=== PATIENT | female | born 1940 | race Caucasian/White ===

== ENCOUNTER 2019-02-10 11:43 | Inpatient (IN) | payer MEDICARE, MEDICAID ==
[~2019-02-10] VITALS: Ht 160 cm; Wt 125.2 kg
[~2019-02-10 11:43] MED LIST: ALLERGY RELIEF10 MG; AMARYL4 MG PO; AUGMENTIN 875875 MG PO; B COMPLEX WITH1 EACH; CIPROFLOXACIN500 M3; CLARITIN10 MG PO; COLACE100 MG PO; FISH OIL; FUROSEMIDE 40 M40 M1; IBUPROFEN 600600 M1 PO; KEFLEX500 MG PO; KETOCONAZOLE60 GM TOP; LISINOPRIL20 MG; METFORMIN HCL500 MG PO; NORCO 5-325 TA1 EAC1 PO; NORCO 5-325 TA1 EACH PO; POTASSIUM20 PO; SERTRALINE HCL100 MG PO; SIMVASTATIN20 MG; SYNTHROID125 MC1 PO; TRIAMCINOLONE A80 G2 TOP; ZESTORETIC 20-1 EAC3 PO
[2019-02-10 11:56] VITALS: BP 175/70
[2019-02-10] MEDS ORDERED: JANUVIA100 MG PO (11:59)
[2019-02-10 12:41] LABS: ABSOLUTE BASOPHILS 0.1 thou/uL (0.0-0.2); ABSOLUTE EOSINOPHILS 0.2 thou/uL (0.0-0.7); ABSOLUTE LYMPHOCYTES 1.5 thou/uL (0.8-5.3); ABSOLUTE MONOCYTES 0.8 thou/uL (0.0-1.2); ABSOLUTE NEUTROPHILS 5.2 thou/uL (1.6-8.1); BASOPHILS 0.7 %; EOSINOPHILS 3.2 %; HEMATOCRIT 35.7 % (37.0-47.0); HEMOGLOBIN 12.5 gm/dL (12.0-15.0); LYMPHOCYTES 18.7 %; MCH 29.8 pg (26.0-34.0); MCHC 34.9 g/dL (28.0-37.0); MCV 85.5 fL (80.0-100.0); MONOCYTES 10.5 %; MPV 8.2 fl. (7.2-11.1); NUCLEATED RBCS 0 /100WBC; PLATELET COUNT* 181 thou/uL (150-400); POLYS 66.9 %; RBC 4.18 mil/uL (4.20-5.00); RDW-CV 12.8 % (10.5-14.5); WBC 7.8 thou/uL (4.0-11.0)
[2019-02-10 12:48] LABS: ANION GAP 6 mmol/L (7-16); BUN 11 mg/dL (7-18); CALCIUM 8.7 mg/dL (8.5-10.1); CHLORIDE 93 mmol/L (98-107); CO2 28 mmol/L (21-32); CREATININE 0.6 mg/dL (0.6-1.3); GLUCOSE 197 mg/dL (70-99); SODIUM 127 mmol/L (136-145)
[2019-02-10 12:52] LABS: APTT 29.1 Seconds (25.0-31.3); PROTIME 10.5 Seconds (9.20-11.50)
[2019-02-10 13:00] LABS: ALKALINE PHOSPHATASE 60 U/L (46-116); NT-PRO BRAIN NAT PEPTIDE 158 pg/mL (<300); SGOT 16 U/L (15-37); SGPT 26 U/L (30-65); TOTAL BILIRUBIN 0.4 mg/dL (<0.1-1.0); TOTAL PROTEIN 6.6 g/dL (6.4-8.2); TROPONIN-I LEVEL <0.06 ng/mL (<0.06)
--- NOTE | 2019-02-10 14:28 | NUR ---
PT BACK FROM RADIOLOGY VIA STRETCHER. TAKEN TO BATHROOM VIA STRETCHER.
--- NOTE | 2019-02-10 15:52 | NUR ---
CALL LIGHT ON, PT STATES SHE IS HOT, WANTED THE SIDE RAIL UP, HER HOB LOWERED AND OXYGEN TUBING RESITUATED. PT BROUGHT FAN, SIDE RAIL WAS RAISED, AND HOB LOWERED. OXYGEN TUBING REPOSITIONED ON EARS. PT THEN STATED SHE NEEDED TO GO TO BATHROOM. PT UNHOOK FROM MONITORS AND PT AMBULATED TO BATHROOM, STEADY SLOW GAIT.
--- NOTE | 2019-02-10 17:41 | EKG ---
[place] [address] ELECTROCARDIOGRAM REPORT Name: NEAL REYES Room: [place] [address] ADM IN .R.#: [id number] Admission: 02/10/19 Attend Phys: Lisa Gilliland Discharge: Date of : 42 Report #: [id number] THIS REPORT FOR: //name// [facility] ED Test Date: 2019-02-10 Test Time: 11:49:41 Pat Name: NEAL REYES Department: Room: [facility] Gender: F Almond Paste Mixer: : 1940 Requested By: Debbie Villanueva Order Number: [id number] MD: Lon Lackey Measurements Intervals [place] Rate: 76 P: 45 HI: 176 QRS: -44 QRSD: 86 T: 59 QT: 399 QTc: 449 Interpretive Statements Sinus rhythm Left anterior fascicular block Compared to ECG 08/19/2016 22:11:41 No significant changes Electronically Signed On 02-10-2019 17:41:32 CDT by Lon Lackey [email or web address] <ELECTRONICALLY SIGNED> By: Lon Lackey MD, [facility] 02/10/19 1741 1149 [id number] Lon Lackey MD, [facility] /EPI
[2019-02-10 18:32] VITALS: BP 165/79
[2019-02-10 18:52] VITALS: BP 165/79
--- NOTE | 2019-02-10 20:00 | NUR ---
RECEIVED REPORT AND ASSUMED CARE OF PT. ADMISSION ASSESSMENT AND HX COMPLETED, SEE INTERVENTIONS. PT'S RT CHEEK EDEMATOUS, WAS AT DENTIST TO GET TOOTH EXTRACTED BEFORE COMING TO HOSPITAL. GAIT SLOW BUT STEADY AROUND ROOM. VERY MATICULIOUS ABOUT HER SURROUNDINGS. TELEMETRY ON SHOWING SR. WILL CONT TO MONITOR AND ASSIST NEEDED.
[2019-02-10] MEDS ORDERED: FUROSEMIDE 20 M20 M1 PO (20:46)
[2019-02-10] MEDS ORDERED: HYDROCHLOROTH12.5 M1 PO (20:47)
[2019-02-10] MEDS ORDERED: KETOCONAZOLE15 GM TOP (20:50)
[2019-02-11 00:06] VITALS: BP 162/71
[2019-02-11 04:00] VITALS: BP 121/67
--- NOTE | 2019-02-11 05:48 | NUR ---
AWAKE UNTIL APPROX 0200, AFTER THIS REMAINED UP IN RECLINER AND SLEPT. PT STATED SHE WAS EXHAUSTED BUT COULDN'T SLEEP BEFORE THIS. RT CHEEK REMAINS EDEMATOUS, ICE PACK TO SITE. UP TO BR HUGO, STATES SHE FEELS LIKE SHE JUST CAN'T EMPTY HER BLADDER. PVR COMPLETED WITH RESIDUAL OF [employer]. TELEMETRY CONT TO SHOW SR. HS GOALS OF REST AND SAFETY ACHIEVED. HOURLY ROUNDING OBSERVED. PT HAS BEEN NPO SINCE CA FOR POSS TEST THIS AM.
[2019-02-11 08:03] VITALS: BP 161/71
--- NOTE | 2019-02-11 11:49 | NUR ---
PT REPORTED SHE HAS A HEADACHE AND TOOTH PAIN. DR EHLMS NOTIFIED. HYDROCODONE ORDERED AND GIVEN.
[2019-02-11 12:24] VITALS: BP 125/59
[2019-02-11 12:54] LABS: CALCIUM 8.8 mg/dL (8.5-10.1); CREATININE 0.6 mg/dL (0.6-1.3); POTASSIUM 3.6 mmol/L (3.5-5.1)
--- NOTE | 2019-02-11 13:02 | 2DMMODE ---
[place] [address] 2 D/M-MODE ECHOCARDIOGRAM Name: NEAL REYES Room: [address] IN [facility]#: [id number] Admission: 02/10/19 Attend Phys: Robin Hamilton Discharge: Date of : 42 Date of Service: 02/11/19 1302 Report #: [id number] THIS REPORT FOR: //name// APPROVED REPORT Study performed: 02/11/2019 10:43:48 EXAM: Comprehensive 2D, Doppler, and color-flow Echocardiogram Patient Location: In-Patient Room #: [facility] Status: routine BSA: 2.22 HR: 75 bpm BP: 161/71 mmHg Rhythm: NSR Other Information Study Quality: Technically Difficult Technically limited study due to patient could not tolerate due to rash pain.. Indications Dyspnea 2D Dimensions IVSd: 11.73 (7-11mm) LVOT Diam: 19.33 (18-24mm) LVDd: 44.98 mm PWd: 10.71 (7-11mm) Ascending Ao: 34.75 (22-36mm) LVDs: 26.83 (25-40mm) Aortic Root: 32.14 mm Mitral Valve MV Decel. Time: 328.11 ms MV PHT: 95.15 ms MVA (PHT): 2.31 cm2 Left Ventricle The left ventricle is normal size. There is normal LV segmental wall motion. There is normal left ventricular wall thickness. Left ventricular systolic function is normal. The left ventricular ejection fraction is within the normal range. The left ventricular diastolic function is normal. Right Ventricle The right ventricle is normal size. [place] [address] 2 D/M-MODE ECHOCARDIOGRAM Name: PRISCILLAVAHIDNEAL Room: [address] IN [facility]#: [id number] Admission: 02/10/19 Attend Phys: Robin Hamilton Discharge: Date of : 42 Date of Service: 02/11/19 1302 Report #: [id number] function is normal. Atria The left atrium size is normal. The right atrium size is normal. Aortic Valve The aortic valve is not well visualized. No aortic regurgitation is present. There is no aortic valvular stenosis. Mitral Valve There is mitral annular calcification. Mitral valve is not well visualized. There is no mitral valve regurgitation noted. No evidence of mitral valve stenosis. Tricuspid Valve Tricuspid valve is not well visualized. Unable to assess PA pressure. Trace tricuspid regurgitation. Pulmonic Valve Pulmonic valve is not well visualized. There is no pulmonic valvular regurgitation. Great Vessels The aortic root is normal in size. IVC is normal in size and collapses >50% with inspiration. Pericardium There is no pericardial effusion. <Conclusion> Left ventricular systolic function is normal. The left ventricular ejection fraction is within the normal range. <ELECTRONICALLY SIGNED> By: Luis Moyer MD, [facility] 02/11/19 1302 01 01 Luis Moyer MD, FAC /INF
--- NOTE | 2019-02-11 15:14 | NUR ---
Cardiac rehab nurse in with Pt, CM will attempt to see later
[2019-02-11 16:22] VITALS: BP 136/47
--- NOTE | 2019-02-11 16:30 | NUR ---
PT O2 SAT 89% RA. O2 2L NC PLACED ON PT. O2 SAT 97%.
--- NOTE | 2019-02-11 17:27 | NUR ---
PT CARE ASSUMED AFTER REPORT. ASSESSMENT COMPLETE. SR ON MONITOR. O2 2L NC. DIET ADVANCED TO CONSISTANT CARB 1800 SAADIA WITH 2GM NA+. PRN PAIN MEDICATION GIVEN PER PT REQUEST. ECHO COMPLETED TODAY. PT UP TO BSC WITH SLOW, STEADY GAIT. PROGRESSING TOWARDS GOALS.
[2019-02-11 20:10] VITALS: BP 143/65
[2019-02-12] VITALS: BP 130/51
[2019-02-12 04:00] VITALS: BP 161/67
--- NOTE | 2019-02-12 04:52 | NUR ---
ASSUMED CARE OF PT AT 1900. PT IS ALERT AND ORIENTED. VSS. PERRLA. PT REPORTS SOME TOOTH PAIN. PT IS RECIEVING HYDROCODONE FOR PAIN. PT IS UP AD VIKI. PLUS 2 EDEMA IN LOWER EXTREMITIES. PT IS IN SINUS RYTHM ON THE TELEMETRY. PT IS RESTING COMFORTABLY IN BED. RESPIRATIONS ARE EVEN AND NONLABORED. WILL CONTINUE TO MONITOR PT.
[2019-02-12 08:00] VITALS: BP 166/65
--- NOTE | 2019-02-12 08:00 | NUR ---
ASSUMED PT CARE AT 0700, PT SITTING UP IN CHAIR, A&O X4, UP AD VIKI, VSS, TANK PUMPER PANELBOARD TRACING SINUS RHYTHM, LS CTA, REMAINS ON 1.5LPM O2 VIA NC D/T PT STATING SHE "FEELS THAT SHE BREATHES BETTER WITH OXYGEN ON", PT O2 SAT 93% RA. CHEST XRAY ORDERED FOR THIS AM. DENIES ANY PAIN AT THIS TIME, WILL CONT POC.
[2019-02-12 11:14] LABS: ABSOLUTE BASOPHILS 0.1 thou/uL (0.0-0.2); ABSOLUTE EOSINOPHILS 0.3 thou/uL (0.0-0.7); ABSOLUTE LYMPHOCYTES 1.5 thou/uL (0.8-5.3); ABSOLUTE MONOCYTES 0.7 thou/uL (0.0-1.2); ABSOLUTE NEUTROPHILS 5.1 thou/uL (1.6-8.1); BASOPHILS 0.7 %; EOSINOPHILS 4.4 %; HEMATOCRIT 41.6 % (37.0-47.0); HEMOGLOBIN 13.9 gm/dL (12.0-15.0); LYMPHOCYTES 19.1 %; MCH 29.3 pg (26.0-34.0); MCHC 33.5 g/dL (28.0-37.0); MCV 87.6 fL (80.0-100.0); MONOCYTES 9.7 %; MPV 8.6 fl. (7.2-11.1); NUCLEATED RBCS 0 /100WBC; PLATELET COUNT* 219 thou/uL (150-400); POLYS 66.1 %; RBC 4.75 mil/uL (4.20-5.00); RDW-CV 13.4 % (10.5-14.5); WBC 7.7 thou/uL (4.0-11.0)
[2019-02-12 11:34] LABS: ALBUMIN 3.4 g/dL (3.4-5.0); CALCIUM 8.5 mg/dL (8.5-10.1); CREATININE 0.6 mg/dL (0.6-1.3); MAGNESIUM 1.9 mg/dL (1.8-2.4); POTASSIUM 4.3 mmol/L (3.5-5.1); TOTAL BILIRUBIN 0.6 mg/dL (<0.1-1.0); TOTAL PROTEIN 7.6 g/dL (6.4-8.2)
[2019-02-12 11:54] VITALS: BP 160/56
--- NOTE | 2019-02-12 12:27 | NUR ---
Nutrition: pt admit with SOB, heart failure. Received consult for cardiac education. Noted cardiac rehabilitation consultant has seen pt. Ns states will provide written diet materials prior to D/C as no physical RD coverage at [facility] this weekend.
--- NOTE | 2019-02-12 15:31 | NUR ---
Pt is A&O. Resides at home alone at [facility]. Independent with ADLs. Pt has a ZUL[employer] caregiver that comes 2 days/week for 4 hours/day, that assists with cooking and cleaning. No home o2. Supportive friends and [employer] members that provide transportation. Hx of HH. No hx of SNF. Goal is home at al, Pt thinks that she may need home o2.
[2019-02-12 16:31] VITALS: BP 154/61
--- NOTE | 2019-02-12 18:59 | NUR ---
PT REMAINS UP AD VIKI, REPEAT CHEST XRAY THIS SHIFT SHOWS PULMONARY VENOUS CONGESTIONA AND EDEMA, PT REMAINS ON O2 AT 1.5-2PLM, LASIX DISCONTINUED, PULMONOLOGY CONSULTED. HOURLY ROUNDING COMPLETED.
[2019-02-12 19:30] VITALS: BP 158/65
[2019-02-13] VITALS: BP 166/59
--- NOTE | 2019-02-13 03:31 | NUR ---
ASSUMED CARE OF PT AT 1900. PT IS ALERT AND ORIENTED. VSS. PERRLA. NO COMPLAINTS OF PAIN. UP WITH STAND BY ASSIST. PT IS IN SINUS RYTHM ON THE TELEMETRY. PT IS RESTING COMFORTABLY IN BED. RESPIRATIONS ARE EVEN AND NONLABORED. WILL CONTINUE TO MONITOR PT.
[2019-02-13 04:00] VITALS: BP 161/66
--- NOTE | 2019-02-13 05:39 | NUR ---
PT REFUSING SYNTHROID. SHE STATES THAT SEVERAL DOCTORS HAVE TOLD HER GENERICS ARE NOT THE SAME BRAND NAME SYNTHROID AND NOT TO TAKE THEM.
[2019-02-13 08:00] VITALS: BP 158/66
[2019-02-13 12:01] VITALS: BP 171/65
[2019-02-13 17:20] VITALS: BP 154/64
[2019-02-13 19:30] VITALS: BP 174/82
[2019-02-14] VITALS: BP 148/56
--- NOTE | 2019-02-14 03:56 | NUR ---
ASSUMED CARE OF PT AT 1900. PT IS ALERT AND ORIENTED. VSS. PERRLA. NO COMPLAINTS OF PAIN. PT IS SPO2 100% ON 1 LITER. PT IS IN SINUS RYTHM ON THE TELEMETRY. PT IS RESTING COMFORTABLY IN BED. RESPIRATIONS ARE EVEN AND NONLABORED. WILL CONTINUE TO MONITOR PT.
[2019-02-14 04:00] VITALS: BP 159/58
[2019-02-14 07:10] VITALS: BP 177/85
--- NOTE | 2019-02-14 10:37 | NUR ---
INITAL ASSESSMENT COMPLETED CHARTED. VSS. PT O2 SAT 96% ON 1 LPM, PT REFUSES TO TRY AND WEAN OFF OF O2. NO SOA NOTED. PT IRRITABLE AND ARGUMENTATIVE WELL. ENCOURAGED PT TO AMBULATE, PT DOES NOT WANT TO AT THIS TIME. TRACING NSR ON MONITOR. HOURLY ROUNDING IN PLACE. MEDS GIVEN PER EMAR. CLWR.
--- NOTE | 2019-02-14 10:49 | CON ---
[address] [address] CONSULTATION Name: NEAL REYES Room: [address] IN M.R.#: [id number] Admission: 02/10/19 Attend Phys: Lisa Gilliland Discharge: Date of : 42 Report #: [id number] THIS REPORT FOR: //name// CC: Alverto Hamilton DATE OF SERVICE: 02/13/2019 TYPE OF REPORT: New patient evaluation. REASON FOR EVALUATION: Shortness of breath and hypoxemia. HISTORY OF PRESENT ILLNESS: The patient is a pleasant 78-year-old woman who presented complaining of shortness of breath and chest pressure. She was at the dentist's office and had some shortness of breath and chest pressure, was admitted for further care. Her history dates back to 6 months ago. She had bronchitis. She has urinary tract infection. Since then has been feeling fatigued, shortness of breath with exertion, has lower extremity edema and swelling and has been sleeping in the recliner. She denies any significant cough overall. Though, she states she has intermittent wheezing and she has nasal allergies. She has been started on bronchodilator treatment; however, without change in her shortness of breath; however, a treatment makes her cough. No history of fever on admission. PAST MEDICAL HISTORY: Significant for diabetes and hypertension as well as hypothyroidism and depression. PAST SURGICAL HISTORY: Bilateral knee replacement and hysterectomy. HOME MEDICATIONS: Noted and reviewed. CURRENT MEDICATIONS: Noted. ALLERGIES: Reviewed. SOCIAL HISTORY: She is a lifelong nonsmoker. No alcohol abuse. FAMILY HISTORY: Noncontributory. REVIEW OF SYSTEMS: A 12-point review of systems: She has arthritis, lower extremity and joint pain. Has a history of nasal allergies, runny nose, chest pressure; however, denies exertional chest pain and this was on admission and shortness of breath for 10 days prior to admission. Has lower extremity swelling for 6 months. Otherwise, 12-point review of systems as above. PHYSICAL EXAMINATION: [place] [address] CONSULTATION Name: NEAL REYES Room: [address]#: [id number] Admission: 02/10/19 Attend Phys: Lisa Gilliland Discharge: Date of : 42 Report #: [id number] GENERAL: The patient is pleasant, not in distress. She is afebrile, pulse is 83, respiratory rate 18 and blood pressure is 171/65 and her blood pressure has been increased since admission and on admission was 175/70. HEAD AND NECK: Neck is supple. Oral mucosa clear. Eyes anicteric. CHEST: She has inspiratory crackles. CARDIOVASCULAR: Regular rhythm. ABDOMEN: Soft and nontender. EXTREMITIES: +2 edema. PSYCHIATRIC: Alert and oriented. NEUROLOGICAL: No focal deficit. LABORATORY AND OTHER DATABASE: I reviewed her chest x-ray and chest CT, which was done on the , shows bilateral patchy ground glass infiltrates suspicious for pulmonary edema. Borderline hilar enlarged lymph node, likely reactive, which can be related to edema as well. Chest x-ray on the showed unchanged pulmonary vascular congestion. White blood cell count 7.7. ASSESSMENT AND PLAN: Shortness of breath and hypoxemia. The patient has bilateral ground glass densities, suspect pulmonary edema. Recommend diuresis. Recommend Cardiology consult. She has an echocardiogram, which showed normal left ventricular function; however, the patient has uncontrolled hypertension, likely chronic, which exacerbated her pulmonary edema, suspect heart failure with exacerbation with ejection fraction now decompensated. Differential diagnoses include atypical pneumonia; however, less likely. We will treat empirically with Levaquin. Her B-natriuretic peptide though was low but it could underestimate severity with obesity. We will continue to follow up intermittently. Continue to wean oxygen. We will need followup chest CT to confirm resolution in 2 months. As above, differential diagnosis include pneumonia and Levaquin will be added. Currently, the patient on bronchodilator with treatment. We will need also pulmonary function test as outpatient with previous history of wheezing to evaluate for bronchial asthma. The patient is currently on Levaquin. <ELECTRONICALLY SIGNED> By: Kathryn Hunter MD 02/14/19 1049 1254 [id number] Hunter MD /nt
[2019-02-14 11:55] VITALS: BP 145/61
[2019-02-14 14:30] VITALS: BP 148/62
[2019-02-14 20:00] VITALS: BP 133/59
[2019-02-15] VITALS: BP 146/52
[2019-02-15 04:00] VITALS: BP 139/64
[2019-02-15 05:11] LABS: HEMATOCRIT 39.3 % (37.0-47.0); HEMOGLOBIN 13.4 gm/dL (12.0-15.0); MCH 29.8 pg (26.0-34.0); MCHC 34.1 g/dL (28.0-37.0); MCV 87.4 fL (80.0-100.0); MPV 7.6 fl. (7.2-11.1); RBC 4.49 mil/uL (4.20-5.00); RDW-CV 13.1 % (10.5-14.5)
[2019-02-15 05:40] LABS: ALBUMIN 3.3 g/dL (3.4-5.0); CALCIUM 9.2 mg/dL (8.5-10.1); CREATININE 0.6 mg/dL (0.6-1.3); MAGNESIUM 1.8 mg/dL (1.8-2.4); POTASSIUM 3.5 mmol/L (3.5-5.1); TOTAL BILIRUBIN 0.5 mg/dL (<0.1-1.0); TOTAL PROTEIN 7.2 g/dL (6.4-8.2)
--- NOTE | 2019-02-15 06:00 | NUR ---
ASSUMED PT CARE @ 1930. A+O X4. PT TRACING SR ON MONITOR. SLEPT THROUGH NIGHT WITHOUT DIFFICULTY. CALL LIGHT IN REACH. HOURLY ROUNDING FOR SAFETY.
[2019-02-15 07:10] VITALS: BP 148/64
--- NOTE | 2019-02-15 10:17 | NUR ---
INITIAL ASSESSMENT COMPLETED CHARTED. VSS. TRACING SR ON MONITOR. PT JANIE PAIN, SOA, CP, N/V/D AT THIS TIME. PT DOES REPORT FEELING A BIT ANXIOUS ABOUT UPCOMING STRESS TEST. PT JANIE ANY FURTHER NEEDS AT THIS TIME. HOURLY ROUNDING IN [place] FOR PT SAFETY. CLWR.
[2019-02-15 11:53] VITALS: BP 173/76
--- NOTE | 2019-02-15 14:39 | CARDNUC ---
[place] [address] CARDIAC NUCLEAR IMAGING REPORT Name: NEAL REYES Room: [address] IN .#: [id number] Admission: 02/10/19 Attend Phys: Robin Hamilton Discharge: Date of : 42 Date of Service: 02/15/19 1439 Report #: [id number] THIS REPORT FOR: //name// APPROVED REPORT Imaging Protocol: Stress Tc-99m/Rest Tc-99m 2 days Study performed: 02/15/2019 09:42:00 Indication: Chest pain NM Tech:VICKIE Singleton BMI: 0 Medical History Medical History: Diabetes Medications: Lisinopril Pharmacologic Stress Pharmacologic stress test was performed by injecting Regadenoson 0.4 mg IV push over 10-15 seconds immediately followed by the intravenous injection of 30.0 mCi of Tc-99m Sestamibi. Time of stress injection: 1110 Date: 02/15/2019 Administration Route: IV Administration Site: Right Arm Gated Stress SPECT was performed 40 minutes after stress injection. The images were gated to evaluate regional wall motion and calculate left ventricular ejection fraction. Stress only was performed in the Supine position. Stress Test Details Stress Test: Pharmacologic stress testing performed using 0.4 mg of regadenoson per 5 mL given IV over 10 seconds. Reason for pharmacologic stress test: physical limitation. HR Max Heart Rate (APMHR): 143 bpm Resting HR: 71 bpm Target HR (85% APMHR): 121 bpm Max HR Achieved: 91 bpm % of APMHR: 63 HR response to stress: Normal HR response to stress BP Resting BP: 148/80 mmHg Max BP: 188/53 mmHg Recovery BP: 156/49 [place] [address] CARDIAC NUCLEAR IMAGING REPORT Name: NEAL REYES Room: [address]#: [id number] Admission: 02/10/19 Attend Phys: Robin Hamilton Discharge: Date of : 42 Date of Service: 02/15/19 1439 Report #: [id number] Resting ECG: nsr Stress ECG: nsr ST Change: none Maximum ST Deviation: none mm Arrhythmia: none Recovery ECG: nsr Recovery ST Change: none Recovery ST Deviation: n mm Clinical Reason for Termination: Completed protocol Stress Symptoms: none Stress ECG Conclusion negative ecg Study Quality Study: Good Artifact: Mild Breast artifact Study Data Post stress, the left ventricular ejection was 75%.. Perfusion Stress only SPECT images are normal in supine and prone positions, without any perfusion defects. Wall Motion normal all segments Nuclear Conclusion ECG Findings: negative for ischemia Clinical Findings: negative for ischemia Nuclear Findings: negative for ischemia Exercise Capacity: not assessed Left Ventricular Function: normal Risk Study: low Negative stress perfusion nuclear stress [place] [address] CARDIAC NUCLEAR IMAGING REPORT Name: NEAL REYES Room: [address] IN .R.#: [id number] Admission: 02/10/19 Attend Phys: Robin Hamilton Discharge: Date of : 42 Date of Service: 02/15/19 143 Report #: [id number] <Conclusion> negative ecg <ELECTRONICALLY SIGNED> By: Bakari Islas MD, FACC 02/15/19 1439 38 38 Bakari Islas MD, FACC /INF
[2019-02-15 16:00] VITALS: BP 147/67
[2019-02-15 20:00] VITALS: BP 125/50
[2019-02-16] VITALS: BP 175/70
--- NOTE | 2019-02-16 02:06 | NUR ---
ASSUMED PT CARE @ 194. PT A+0. NO SOA WITNESSED OR OBSERVED. PT REPORTED DENTAL PAIN AND REFUSED NORCO. PT STATED "IT DOESNT'T HELP. I'D RATHER JUST HAVE IBUPROFEN." PT ALSO REPORTS CONSTIPATION. WILL PASS ON IN REPORT. CALL LIGHT IN REACH. HOURLY ROUNDING FOR SAFETY.
[2019-02-16 04:10] VITALS: BP 120/69
--- NOTE | 2019-02-16 06:30 | NUR ---
NOTIFIED DR PATEL OF PT'S ELECTROLYLTES LABS THIS AM. SODIUM RECHECK ORDERED FOR 0800. PT A+O X 4 WITH NORMAL BALANCE AND COORDINATION. PT STATES "THIS IS THE BEST DALLIN FELT IN DAYS."
[2019-02-16 08:21] VITALS: BP 148/64
--- NOTE | 2019-02-16 11:22 | NUR ---
Nutrition: Wt stable from admit. Intake 75% this am. Meds and labs reviewed. Provided pt with handout and explaination of 2 gm Na diet. Reviewed recommendations for ANATOLIY and avoid most processed foods, etc. Pt appeared to have a good understanding but also has many opinions about what she should eat. Pt stated she is on food stamps and can't always buy low Na foods like canned goods; recommendations offered. Concerning meals pt is unhappy with our heart healthy margarin, and our low-sugar jelly that contins artifical sweeteners. Pt also unhappy that don't have stevia or Truvia artificial sweeteners. Pt concerned about constipation, has been eating 6 prunes per meal (>2 CHO choices); doesn't want meds for constipation. Pt unhappy that she was not able to take Synthroid for 5 days and feels her body is not responding to all these medical interventions well. Encouraged pt to talk with dietary staff daily about her meal preferences. constipation, has been eating 6 prunes with each meal
[2019-02-16 11:59] VITALS: BP 155/52
[2019-02-16 16:11] VITALS: BP 152/62
--- NOTE | 2019-02-16 16:39 | NUR ---
02/16 Days: x1 dose of iv lasix. daily steriods added. k+ and mag+ given with lasix. BLE doppler completed. laxatives added to aid in relieving patients constipation. Continues on 1L o2, mostly for patient comfort
[2019-02-16 20:00] VITALS: BP 142/65
[2019-02-17] VITALS: BP 134/58
--- NOTE | 2019-02-17 03:49 | NUR ---
ASSUMED PT CARE @ 1930. PT A+OX4. VERY ANXIOUS ABOUT MEDS. UPSET ABOUT BLOOD SUGAR AND HAVING TO TAKE INSULIN IN THE HOSPITAL. PT ANXIOUS ABOUT BLOOD SUGAR LEVLES WHILE IN THE HOSPITAL. THIS RN EDUCATED PT FOR THE 3RD CONSECUTIVE NIGHT IN A ROW WHY PT IS CURRENTLY TAKING INSULIN AND HOW HER BLOOD SUGAR LEVELS ARE EXPECTED PT IS NOT TAKING HER HOME JANUVIA AND METFORMIN. PT REFUSED TO START LOVENOX STATING "I WANT TO TALK TO THE DR BEFORE I START ANY NEW MEDICATION." PT ALSO C/O DENTAL PAIN AND DECLINED TO TAKE HER NORCO. CALL LIGHT IN REACH. HOURLY ROUNDING FOR SAFETY.
[2019-02-17 04:00] VITALS: BP 131/68
[2019-02-17 05:33] LABS: HEMATOCRIT 40.3 % (37.0-47.0); HEMOGLOBIN 13.7 gm/dL (12.0-15.0); MCH 29.2 pg (26.0-34.0); MCHC 33.9 g/dL (28.0-37.0); MCV 86.2 fL (80.0-100.0); RBC 4.68 mil/uL (4.20-5.00); WBC 7.1 thou/uL (4.0-11.0)
[2019-02-17 05:48] LABS: CALCIUM 8.9 mg/dL (8.5-10.1); CREATININE 0.6 mg/dL (0.6-1.3)
[2019-02-17 08:00] VITALS: BP 140/65
--- NOTE | 2019-02-17 10:40 | NUR ---
CM spoke with Pt regarding disposition, Pt wants to return home at dc and wants to [facility]. CM to reach out to [facility] and determine if they can accept Pt at dc. Following
[2019-02-17 11:48] VITALS: BP 140/64
[2019-02-17 17:09] VITALS: BP 125/60
--- NOTE | 2019-02-17 19:40 | NUR ---
PT ALERT AND ORIENTED X4.VSS. RESTED IN THE RECLINER THE WHOLE DAY, STATES IT IS MORE COMFORTABLE THAN THE BED. PT HAD A HUGE BM, HARD FORMED IN CONSISTENCY. PT PROGRESSING TOWARD GOALS. WALKED DOWN THE MILLER WITH THE HELP OF PT. DENIES PAIN OR SOA.
[2019-02-17 20:00] VITALS: BP 136/63
[2019-02-18] VITALS: BP 130/57
[2019-02-18 04:00] VITALS: BP 121/64
--- NOTE | 2019-02-18 04:40 | NUR ---
ASSUMED PT CARE AT APPROX 1930. PT IS AWAKE AND ORIENTED X4, ON THE RECLINER. VSS ON 2L/NC. UTILITY TRACTOR OPERATOR IN PLACE TRACING SR. PT DENIES PAIN. PT C/O HER FACE BEING HOT. BP 139/62. T:98.4. APPLIED COLD WASHCLOTHS ON PT'S FACE AND SHE SAID IT HELPED. HOURLY ROUNDING DONE. CALL LIGHT WITHIN REACH.
[2019-02-18 08:00] VITALS: BP 145/65
[2019-02-18 11:38] VITALS: BP 140/59
--- NOTE | 2019-02-18 11:45 | NUR ---
0730 ASSUMED CARE OF PATIENT. PLEASE SEE DOCUMENTED ASSESSMENT, PATIENT HAS SLEPT IN RECLINER ALL NIGHT.
--- NOTE | 2019-02-18 16:09 | NUR ---
INTERDRY PLACED TO BOTH GROINS AND UNDERR RIGHT BREAST DUE TO REDNESS
[2019-02-18 16:19] VITALS: BP 141/61
--- NOTE | 2019-02-18 18:21 | NUR ---
PATIENT MAKING SOME PROGRESS TOWARDS GOALS.ON OXYGEN AT 1LPM. HAS BEEN IN RECLINER ALL DAY EXCEPT FOR BRP AND WALKING IN MILLER. SHORT OF BREATH WITH EXERTION. BLOOD GLUCOSE VARIES. PT IS FRUSTRATED AT TRYING TO OBTAIN DIFFERENT PRIMARY CARE PHYSICIAN. HAVE NOT SEEN VISITORS BUT PT HAS BEEN ON TELEPHONE. VSS
[2019-02-18 20:00] VITALS: BP 145/71
[2019-02-19] VITALS: BP 140/64
[2019-02-19 04:00] VITALS: BP 142/72
--- NOTE | 2019-02-19 04:48 | NUR ---
ASSUMED PT CARE AT APPROX 1930. PT IS AWAKE AND ORIENTED X4. PT PREFERS TO SLEEP ON THE RECLINER. VSS ON 1L/NC. BRANCH OFFICE MANAGER TRACING SR. PT DENIES PAIN/DISCOMFORT. REASSESSMENT DONE AND CHARTED. CALL LIGHT WITHIN REACH. HOURLY ROUNDING DONE FOR PT SAFETY.
[2019-02-19 05:45] LABS: ALBUMIN 3.6 g/dL (3.4-5.0); CALCIUM 8.8 mg/dL (8.5-10.1); CREATININE 0.6 mg/dL (0.6-1.3); MAGNESIUM 1.9 mg/dL (1.8-2.4); POTASSIUM 3.2 mmol/L (3.5-5.1); TOTAL BILIRUBIN 0.7 mg/dL (<0.1-1.0); TOTAL PROTEIN 7.6 g/dL (6.4-8.2)
[2019-02-19 05:49] LABS: HEMATOCRIT 39.8 % (37.0-47.0); HEMOGLOBIN 13.6 gm/dL (12.0-15.0); MCH 29.4 pg (26.0-34.0); MCHC 34.1 g/dL (28.0-37.0); MCV 86.1 fL (80.0-100.0); MPV 8.4 fl. (7.2-11.1); RBC 4.62 mil/uL (4.20-5.00); RDW-CV 13.1 % (10.5-14.5); WBC 7.5 thou/uL (4.0-11.0)
[2019-02-19 07:05] VITALS: BP 144/59
--- NOTE | 2019-02-19 10:00 | NUR ---
INITAL ASSESSMENT COMPLETED CHARTED. VSS. SR-SB ON MONITOR. PT DENIES PAIN. PT DENIES ANY FURTHER NEEDS AT THIS TIME. HOURLY ROUNDING AND FALL PRECAUTIONS IN PLACE FOR PT SAFETY. CLWR.
[2019-02-19 11:54] VITALS: BP 135/57
[2019-02-19 16:45] VITALS: BP 137/64
[2019-02-19 20:00] VITALS: BP 144/73
[2019-02-20] VITALS: BP 149/69
--- NOTE | 2019-02-20 03:44 | NUR ---
ASSUMED PT CARE AT APPROX 1930. PT IS AWAKE AND ORIENTED X4. VSS ON ROOM AIR, NO DESATURATIONS NOTED. PT TRACING SR ON TELE. REASSESSMENT DONE AND CHARTED. PT DENIES PAIN/DISCOMFORT, PT DENIES ANY NEEDS OF THIS TIME. CALL LIGHT WITHIN REACH. HOURLY ROUNDING DONE FOR PT SAFETY.
[2019-02-20 04:00] VITALS: BP 129/63
[2019-02-20 07:10] VITALS: BP 145/65
--- NOTE | 2019-02-20 10:00 | NUR ---
INITIAL ASSESSMENT COMPLETED CHARTED. VSS. SR ON MONITOR. PT IS CURRENTLY ON RA WITH ADEQUATE O2 SATS. PT UP ADLIB WITH STEADY GAIT. HOURLY ROUNDING IN PLACE FOR PT SAFETY. CLWR.
[2019-02-20 11:30] VITALS: BP 147/62
[2019-02-20 16:00] VITALS: BP 137/67
[2019-02-20 20:00] VITALS: BP 137/71
[2019-02-21] VITALS: BP 142/75
[2019-02-21 04:00] VITALS: BP 149/64
--- NOTE | 2019-02-21 04:14 | NUR ---
ASSUMED PT CARE AT AROUND 1930. PT IS AWAKE AND ORIENTED X4. VSS ON ROOM AIR. NO DESATURATIONS NOTED. DIRECTOR OF NUCLEAR MEDICINE IN PLACE TRACING SR. PT DENIES PAIN. PT's GROIN AREA AND UNDER THE BREAST AREA IS STILL RED BUT LOOKS BETTER,AREA CLEANED AND NEW INTERDRY REAPPLIED BETWEEN SKIN FOLDS. CALL LIGHT WITHIN REACH. HOURLY ROUNDING DONE FOR PT SAFETY,
[2019-02-21 04:39] LABS: HEMATOCRIT 41.5 % (37.0-47.0); HEMOGLOBIN 13.9 gm/dL (12.0-15.0); MCHC 33.5 g/dL (28.0-37.0); MCV 86.6 fL (80.0-100.0); MPV 8.3 fl. (7.2-11.1); RBC 4.8 mil/uL (4.20-5.00); RDW-CV 12.9 % (10.5-14.5); WBC 7.7 thou/uL (4.0-11.0)
[2019-02-21 04:53] LABS: CALCIUM 8.8 mg/dL (8.5-10.1); CREATININE 0.6 mg/dL (0.6-1.3); MAGNESIUM 1.8 mg/dL (1.8-2.4); POTASSIUM 3.2 mmol/L (3.5-5.1)
[2019-02-21 07:05] VITALS: BP 144/63
[2019-02-21 11:37] VITALS: BP 156/69
[2019-02-21 15:52] VITALS: BP 136/64
[2019-02-21 19:50] VITALS: BP 142/62
[2019-02-22] VITALS: BP 144/65
[2019-02-22 04:00] VITALS: BP 144/67
--- NOTE | 2019-02-22 05:19 | NUR ---
PATIENT PROGRESSING TOWARDS GOALS: PATIENT DENIES PAIN AND DISCOMFORT. VSS ON ROOM AIR. INTERDRY REMAINS IN PANUS REGION. PATIENT CONCERNED WITH ELEVATED BLOOD SUGAR. INSULIN ADMINISTERED PER ORDERS AND EDUCATED PATIENT ON EFFECTS OF STEROIDS. PATIENT VERBALIZES UNDERSTANDING. PATIENT PENDING POSSIBLE DISCHARGE TODAY. CALL LIGHT WITHIN REACH
[2019-02-22 05:30] LABS: HEMATOCRIT 40.4 % (37.0-47.0); HEMOGLOBIN 13.9 gm/dL (12.0-15.0); MCH 29.6 pg (26.0-34.0); MCHC 34.5 g/dL (28.0-37.0); MPV 8.5 fl. (7.2-11.1); RBC 4.69 mil/uL (4.20-5.00); WBC 7.5 thou/uL (4.0-11.0)
[2019-02-22 05:42] LABS: ALBUMIN 3.6 g/dL (3.4-5.0); CALCIUM 9.1 mg/dL (8.5-10.1); CREATININE 0.7 mg/dL (0.6-1.3); MAGNESIUM 1.9 mg/dL (1.8-2.4); POTASSIUM 3.5 mmol/L (3.5-5.1); TOTAL BILIRUBIN 0.8 mg/dL (<0.1-1.0); TOTAL PROTEIN 7.5 g/dL (6.4-8.2)
[2019-02-22 07:15] VITALS: BP 139/71
--- NOTE | 2019-02-22 10:25 | NUR ---
CM discussed disposition with Pt, Pt waivering between and SNF, Pt to contact dtr to get her opinion. CM informed Pt that she is getting close to dc and we need to have a plan in place, CM to f/u later today.
[2019-02-22 11:36] VITALS: BP 124/56
[2019-02-22 15:39] VITALS: BP 133/65
--- NOTE | 2019-02-22 18:47 | NUR ---
ASSESSMENT COMPLETED CHARTED. VSS. TRACING SR ON MONITOR. HOURLY ROUNDING IN PLACE FOR PT SAFETY.CLWR.
[2019-02-22 19:45] VITALS: BP 152/53
[2019-02-23] VITALS: BP 154/59
[2019-02-23 03:44] VITALS: BP 149/66
[2019-02-23 05:39] LABS: HEMATOCRIT 39.2 % (37.0-47.0); HEMOGLOBIN 13.6 gm/dL (12.0-15.0); MCH 29.6 pg (26.0-34.0); MCHC 34.6 g/dL (28.0-37.0); MCV 85.7 fL (80.0-100.0); MPV 8.2 fl. (7.2-11.1); RBC 4.58 mil/uL (4.20-5.00); RDW-CV 13.2 % (10.5-14.5); WBC 8.2 thou/uL (4.0-11.0)
[2019-02-23 05:58] LABS: ALBUMIN 3.4 g/dL (3.4-5.0); CALCIUM 8.9 mg/dL (8.5-10.1); CREATININE 0.6 mg/dL (0.6-1.3); MAGNESIUM 1.8 mg/dL (1.8-2.4); POTASSIUM 3.1 mmol/L (3.5-5.1); TOTAL BILIRUBIN 0.8 mg/dL (<0.1-1.0); TOTAL PROTEIN 7.1 g/dL (6.4-8.2)
--- NOTE | 2019-02-23 06:57 | NUR ---
RECEIVED REPORT AND ASSUMED CARE AT 1900. VSS. CARDIAC MONTORING IN PLACE. PT DENIES COMPLAINTS OF PAIN. ASSESSMENT COMPLETED CHARTED. PT UP AD VIKI IN ROOM, ON RA. BED LOCKED IN LOWEST POSITION, CALL LIGHT WITHIN REACH. HOURLY ROUNDING COMPLETED AND ALL NEEDS MET.
[2019-02-23 08:00] VITALS: BP 146/61
--- NOTE | 2019-02-23 11:29 | NUR ---
[facility] can accept Pt for skilled, awaiting dc orders.
--- NOTE | 2019-02-23 11:44 | NUR ---
Pt discharging to [facility] skilled today. Faxed dc orders. Chart copied. Nurse report number provided, [phone]. Facility to pickling tank operator at 2pm. Updated Pt's family.
[2019-02-23 11:47] VITALS: BP 123/54
--- NOTE | 2019-02-23 16:35 | NUR ---
DISCHARGE NOTE - IV REMOVED. CHART COPIED AND SENT WITH PT. REPORT CALLED TO LEONARD SIDDIQI AT [facility]. NO QUESTIONS. ALL BELONGINGS SENT WITH PT AND SHARON OROZCO.
--- NOTE | 2019-02-28 10:35 | D ---
[address] [address] DISCHARGE SUMMARY Name: NEAL REYES Room: [address]#: [id number] Admission: 02/10/19 Attend Phys: Lisa Gilliland Discharge: 02/23/19 Date of : 42 Report #: [id number] THIS REPORT FOR: //name// CC: Alverto Palma DO Robin Hamilton DATE OF SERVICE: 02/23/2019 DISCHARGE DIAGNOSES: 1. Acute diastolic congestive heart failure exacerbation. 2. Pneumonia, moderately increasing. 3. Possible gram-negative pneumonia. 5. Hypertension. 6. Chronic venous stasis. 7. Obesity. 9. Hyponatremia. 10. Diabetes. 11. Hypertension. 12. Acute hypoxic respiratory failure, resolved. 13. COPD in exacerbation. 14. Generalized weakness. 15. Bronchospasm. 16. GERD. HOSPITAL COURSE: The patient is a 78-year-old female who presented to us here complaining of some shortness of breath. She was noted to be in acute diastolic congestive heart failure. She was diuresed. She was doing better in that aspect. However, she developed bronchospasm and was wheezy. Pulmonary was consulted. A chest x-ray done, which showed no focal consolidation, but improved aeration in her last chest x-ray. She did have a chest x-ray done on admission, which showed no infiltrates. Also, the patient had some CT chest done, which showed no PE, but scattered ground glass infiltrate. She has treated for them with antibiotics. She has been on Levaquin and will finish off Levaquin at prison facility. She lives by herself. She will need to transition to prison facility. She has been placed on steroids and she is doing well. She does have some wheezing. DISCHARGE PHYSICAL EXAMINATION: VITAL SIGNS: Temperature is 36.6, heart rate 86, respirations 16, blood pressure 103/54, 96% on room air. GENERAL: The patient is alert. She is oriented x 3, not in acute respiratory distress. HEENT: Normocephalic, atraumatic. Nares patent. Clear pharynx. NECK: Supple. No lymphadenopathy. CARDIOVASCULAR: Normal rate, regular [place] [id number] DISCHARGE SUMMARY Name: NEAL REYES Room: [address]#: [id number] Admission: 02/10/19 Attend Phys: Lisa Gilliland Discharge: 02/23/19 Date of : 42 Report #: [id number] RESPIRATORY: Clear to auscultation bilaterally. No wheeze, no crackles. She does have some wheezing and no crackles noted. GASTROINTESTINAL: Abdomen is soft, nontender, nondistended. Good bowel sounds. No organomegaly. GENITOURINARY: Deferred. MUSCULOSKELETAL: Good strength. NEUROLOGIC: Grossly normal. PSYCHIATRIC: The patient is calm and good. DISCHARGE INSTRUCTIONS: The patient will be discharged to [facility] ([place]) today for continued rehab and rehab potential fair. PT and OT activity as tolerated with assistance of full weightbearing. DIET: 2 gram sodium diet, fluid restriction, 1500 mL per day, ADA 800 kcal diet, fingerstick blood sugar a.c. and bedtime. Follow up with PCP in 3-5 days. DISCHARGE MEDICATIONS: Amaryl 4 mg daily. She is on chlorthalidone 25 mg daily, Claritin 10 mg daily, DuoNeb inhaled every 4 hours, furosemide 20 mg daily, Glucophage 500 mg p.o. b.i.d., Januvia 100 mg daily, ketoconazole 15 grams b.i.d. p.r.n., Levaquin 500 mg daily x 4 more days, MiraLax 17 g daily, Prinivil 10 mg daily, Pulmicort 0.5 inhaled daily, sertraline 200 mg at bedtime, Singulair 10 mg at bedtime, Synthroid 125 daily, Zoloft 50 mg daily, Prednisone taper 20 mg x 3 days, then 10 mg p.o. daily x 3 days, then discontinue. NovoLog insulin sliding scale, give 1 unit for every 50 units over 150 upto 400 blood sugar. Please call PCP if blood sugar is more than 400 and we will also have a BNP in 3 days. Results through PCP. I spent 38 minutes taking care of this patient today. <ELECTRONICALLY SIGNED> By: Natalie Zamorano MD 02/28/19 1035 [id number] [id number] Zamorano MD /nt
== END 2019-02-23 16:35 | DRG 177 ==
LOC: M.ERS 11:43 → M.TBA-ER 13:18 → M.2W 13:18
PROVIDERS: Family Medicine; Nurse Practitioner Family; ADMIT Internal Medicine
DX: J69.0 Pneumonitis due to inhalation of food and vomit (principal); J96.01 Acute respiratory failure with hypoxia; I50.33 Acute on chronic diastolic (congestive) heart failure; E87.1 Hypo-osmolality and hyponatremia; Z68.42 Body mass index [BMI] 45.0-49.9, adult; I11.0 Hypertensive heart disease with heart failure; J15.9 Unspecified bacterial pneumonia; K21.9 Gastro-esophageal reflux disease without esophagitis; J15.6 Pneumonia due to other Gram-negative bacteria; J84.9 Interstitial pulmonary disease, unspecified; E66.01 Morbid (severe) obesity due to excess calories; K59.00 Constipation, unspecified; E11.9 Type 2 diabetes mellitus without complications; I87.8 Other specified disorders of veins; F32.9 Major depressive disorder, single episode, unspecified; E03.9 Hypothyroidism, unspecified; Z96.653 Presence of artificial knee joint, bilateral; Z88.2 Allergy status to sulfonamides; Z90.710 Acquired absence of both cervix and uterus; Z91.040 Latex allergy status

== ENCOUNTER 2019-03-03 14:00 | Emergency (ER) | payer MEDICARE, MEDICAID ==
[~2019-03-03] VITALS: Ht 162.6 cm; Wt 113.4 kg
[~2019-03-03 14:00] MED LIST changes: +FUROSEMIDE 20 M20 M1 PO; +HYDROCHLOROTH12.5 M1 PO; +JANUVIA100 MG PO; +KETOCONAZOLE15 GM TOP
[2019-03-03] MEDS ORDERED: ACCUNEB SO1.25 MG/1 INH (14:14)
[2019-03-03] MEDS ORDERED: ACIDOPHILUS1 EAC4 PO (14:15)
[2019-03-03] MEDS ORDERED: NYSTATIN100000 UNI SW&SWALLOW (14:15)
[2019-03-03] MEDS ORDERED: METFORMIN HCL500 MG PO (14:15)
[2019-03-03] MEDS ORDERED: PULMICORT0.25 MG/2 (14:16)
[2019-03-03] MEDS ORDERED: ATROVENT HFA14 GM INH (14:16)
[2019-03-03] MEDS ORDERED: AMARYL4 MG PO (14:16)
[2019-03-03] MEDS ORDERED: CLARITIN10 MG PO (14:16)
[2019-03-03] MEDS ORDERED: TUBERSOL1 ML/1 VIA INTRADERM (14:16)
[2019-03-03] MEDS ORDERED: JANUVIA100 MG PO (14:16)
[2019-03-03] MEDS ORDERED: MIRALAX17 GM PO (14:17)
[2019-03-03] MEDS ORDERED: NOVOLOG100 UNIT/1 SUBQ (14:17)
[2019-03-03 16:08] VITALS: BP 133/58
== END 2019-03-03 16:10 | disposition home or self-care (01) ==
LOC: M.ERS 14:00
DX: T78.3XXA Angioneurotic edema, initial encounter (principal); B37.0 Candidal stomatitis; E11.9 Type 2 diabetes mellitus without complications; F32.9 Major depressive disorder, single episode, unspecified; E03.9 Hypothyroidism, unspecified; Z90.710 Acquired absence of both cervix and uterus; Z91.040 Latex allergy status; Z88.1 Allergy status to other antibiotic agents; Z88.2 Allergy status to sulfonamides; Z96.653 Presence of artificial knee joint, bilateral; Z79.4 Long term (current) use of insulin

== ENCOUNTER 2020-06-29 00:22 | Emergency (ER) | payer MEDICARE, MEDICAID ==
[~2020-06-29] VITALS: Ht 160 cm; Wt 113.4 kg
[~2020-06-29 00:22] MED LIST changes: +ACCUNEB SO1.25 MG/1 INH; +ACIDOPHILUS1 EAC4 PO; +ATROVENT HFA14 GM INH; +MIRALAX17 GM PO; +NOVOLOG100 UNIT/1 SUBQ; +NYSTATIN100000 UNI SW&SWALLOW; +PULMICORT0.25 MG/2; +TUBERSOL1 ML/1 VIA INTRADERM
[2020-06-29] MEDS ORDERED: LOSARTAN PO (00:34)
[2020-06-29] MEDS ORDERED: SYNTHROID125 MC1 (00:35)
[2020-06-29] MEDS ORDERED: MONTELUKAST PO (00:35)
[2020-06-29] MEDS ORDERED: KLOR-CON 10 ER10 MEQ (00:36)
[2020-06-29 01:08] LABS: ABSOLUTE EOSINOPHILS 0.1 thou/uL (0.0-0.7); ABSOLUTE LYMPHOCYTES 0.8 thou/uL (0.8-5.3); ABSOLUTE MONOCYTES 0.5 thou/uL (0.0-1.2); ABSOLUTE NEUTROPHILS 4.5 thou/uL (1.6-8.1); BASOPHILS 0.5 %; EOSINOPHILS 1.7 %; HEMATOCRIT 42.4 % (37.0-47.0); HEMOGLOBIN 14.6 gm/dL (12.0-15.0); LYMPHOCYTES 13.1 %; MCHC 34.5 g/dL (28.0-37.0); MONOCYTES 7.9 %; MPV 8.5 fl. (7.2-11.1); NUCLEATED RBCS 0 /100WBC; PLATELET COUNT* 153 thou/uL (150-400); POLYS 76.8 %; RBC 4.88 mil/uL (4.20-5.00); RDW-CV 13.9 % (10.5-14.5); WBC 5.9 thou/uL (4.0-11.0)
[2020-06-29 01:14] LABS: CALCIUM 8.7 mg/dL (8.5-10.1); CREATININE 0.8 mg/dL (0.6-1.3)
[2020-06-29 01:15] LABS: URINE BILIRUBIN NEGATIVE (Negative); URINE BLOOD NEGATIVE (Negative); URINE CLARITY CLEAR; URINE COLOR YELLOW; URINE GLUCOSE-RANDOM NEGATIVE (Negative); URINE KETONES NEGATIVE (Negative); URINE LEUKOCYTES-REFLEX 2+ (Negative); URINE NITRITE-REFLEX NEGATIVE (Negative); URINE PROTEIN NEGATIVE (Negative); URINE SPECIFIC GRAVITY 1.015 (1.005-1.030); URINE UROBILINOGEN 0.2 E.U./dl (0.2-1.0)
[2020-06-29 01:24] LABS: PROTIME 10.7 Seconds (9.20-11.50)
[2020-06-29 01:25] LABS: ALBUMIN 3.9 g/dL (3.4-5.0); MAGNESIUM 1.6 mg/dL (1.8-2.4); TOTAL BILIRUBIN 0.6 mg/dL (<0.1-1.0); TOTAL PROTEIN 7.6 g/dL (6.4-8.2)
[2020-06-29 01:39] LABS: BACTERIA-REFLEX >30 Many /HPF (None Seen); COARSE GRANULAR CASTS 0-3 Few /LPF (None Seen); CRYSTALS None Seen /LPF (None Seen); FINE GRANULAR CASTS 0-3 Few /LPF (None Seen); MUCUS 4-6 Moderate strn/LPF (None Seen); SQUAMOUS 0-3 Few /LPF (0-3); URINE RBC 3-10 Few /HPF (0-2); WBC CLUMPS Few (None Seen)
[2020-06-29] MEDS ORDERED: VIBRAMYCIN 100100 MG PO (03:28)
[2020-06-29 04:15] VITALS: BP 130/70
--- NOTE | 2020-06-29 10:21 | EKG ---
[place] [address] ELECTROCARDIOGRAM REPORT Name: NEAL REYES Room: [facility]#: [id number] Admission: 06/29/20 Attend Phys: Discharge: 06/29/20 Date of : 42 Date of Service: 06/29/20 0124 Report #: [id number] THIS REPORT FOR: //name// [facility] ED Test Date: 2020-06-29 Test Time: 01:24:04 Pat Name: NEAL WELLSEDWAR Department: Room: Gender: F Business Records Manager: [place] : 1940 Requested By: Vidhya Barney Order Number: [id number] MD: Luis Moyer Measurements Intervals [place] Rate: 76 P: 30 MO: 177 QRS: -45 QRSD: 90 T: 50 QT: 387 QTc: 436 Interpretive Statements Sinus rhythm Left anterior fascicular block Consider anterior infarct Compared to ECG 02/10/2019 11:49:41 no change Electronically Signed On 06-29-2020 10:21:26 CDT by Luis Moyer [email or web address] <ELECTRONICALLY SIGNED> By: Luis Moyer MD, [facility] 06/29/20 1021 0124 0124 Luis Moyer MD, [facility] /EPI
== END 2020-06-29 04:15 | disposition still patient (30) ==
LOC: M.ERS 00:22
PROVIDERS: Emergency Medicine
DX: S09.8XXA Other specified injuries of head, initial encounter (principal); N39.0 Urinary tract infection, site not specified; M54.5 Low back pain; M54.6 Pain in thoracic spine; M54.2 Cervicalgia; E03.9 Hypothyroidism, unspecified; E11.9 Type 2 diabetes mellitus without complications; Z90.710 Acquired absence of both cervix and uterus; Z96.653 Presence of artificial knee joint, bilateral; Z79.4 Long term (current) use of insulin; Z91.040 Latex allergy status; Z88.2 Allergy status to sulfonamides; Z88.1 Allergy status to other antibiotic agents; W18.39XA Other fall on same level, initial encounter; Y93.89 Activity, other specified; Y92.89 Other specified places as the place of occurrence of the external cause; Y99.8 Other external cause status

== ENCOUNTER 2021-04-18 10:39 | Emergency (ER) | payer OTHER, MEDICAID ==
[~2021-04-18] VITALS: Ht 160 cm; Wt 103.9 kg
[~2021-04-18 10:39] MED LIST changes: +KLOR-CON 10 ER10 MEQ; +LOSARTAN PO; +MONTELUKAST PO; +SYNTHROID125 MC1; +VIBRAMYCIN 100100 MG PO
[2021-04-18] MEDS ORDERED: PROBIOTIC1 EAC7 PO (10:58)
[2021-04-18] MEDS ORDERED: MONTELUKAST SODI4 M1 PO (10:58)
[2021-04-18] MEDS ORDERED: EZALLOR SPRINKL10 MG PO (11:00)
[2021-04-18] MEDS ORDERED: COZAAR 25 MG TA25 M1 PO (11:02)
[2021-04-18] MEDS ORDERED: CINNAMON OIL480 ML (11:09)
[2021-04-18] MEDS ORDERED: CLOBETASOL 0.0560 GM TOP (11:09)
[2021-04-18] MEDS ORDERED: TRULICITY1.5 MG/0.5 (11:09)
[2021-04-18 12:23] LABS: ABSOLUTE BASOPHILS 0.1 thou/uL (0.0-0.2); ABSOLUTE EOSINOPHILS 0.2 thou/uL (0.0-0.7); ABSOLUTE LYMPHOCYTES 1.7 thou/uL (0.8-5.3); ABSOLUTE MONOCYTES 0.8 thou/uL (0.0-1.2); ABSOLUTE NEUTROPHILS 4.7 thou/uL (1.6-8.1); BASOPHILS 0.7 %; EOSINOPHILS 3.3 %; HEMATOCRIT 39.2 % (37.0-47.0); HEMOGLOBIN 13.5 gm/dL (12.0-15.0); LYMPHOCYTES 22.4 %; MCH 30.3 pg (26.0-34.0); MCHC 34.5 g/dL (28.0-37.0); MCV 87.8 fL (80.0-100.0); MONOCYTES 10.9 %; MPV 8.4 fl. (7.2-11.1); NUCLEATED RBCS 0 /100WBC; PLATELET COUNT* 167 thou/uL (150-400); POLYS 62.7 %; RBC 4.46 mil/uL (4.20-5.00); RDW-CV 13.5 % (10.5-14.5); WBC 7.4 thou/uL (4.0-11.0)
[2021-04-18 12:34] LABS: CALCIUM 8.9 mg/dL (8.5-10.1); CREATININE 0.8 mg/dL (0.6-1.3); POTASSIUM 3.9 mmol/L (3.5-5.1)
[2021-04-18 12:38] LABS: ALBUMIN 4.2 g/dL (3.4-5.0); TOTAL BILIRUBIN 0.5 mg/dL (<0.1-1.0); TOTAL PROTEIN 7.8 g/dL (6.4-8.2)
[2021-04-18 12:45] VITALS: BP 168/68
--- NOTE | 2021-04-18 13:02 | EKG ---
[place] [address] ELECTROCARDIOGRAM REPORT Name: NEAL REYES Room: [facility]#: [id number] Admission: 04/18/21 Attend Phys: Discharge: 04/18/21 Date of : 42 Date of Service: 04/18/21 1047 Report #: [id number] THIS REPORT FOR: //name// [facility] ED Test Date: 2021-04-18 Test Time: 10:47:46 Pat Name: NEAL WELLSVAHID Department: Room: Gender: F Mechanic Assistant: JESSICA : 1940 Requested By: Rm Arango Order Number: [id number] Reading MD: Daniel Subramanian Measurements Intervals [place] Rate: 76 P: 12 GA: 157 QRS: -56 QRSD: 83 T: 65 QT: 372 QTc: 419 Interpretive Statements Sinus rhythm Left axis deviation compatible left anterior hemiblock Anterolateral infarct, old possible Baseline wander in lead(s) II,III,aVF,V5 Compared to ECG 06/29/2020 01:24:04 Myocardial infarct finding still present Electronically Signed On 04-18-2021 13:02:32 CDT by Daniel Subramanian [email or web address] <ELECTRONICALLY SIGNED> By: Daniel Subramanian MD, [facility] 04/18/21 1302 1047 1047 Daniel Subramanian MD, [facility] /EPI
== END 2021-04-18 12:45 | disposition home or self-care (01) ==
LOC: M.ERS 10:39
PROVIDERS: Physician Assistant
DX: N39.0 Urinary tract infection, site not specified (principal); E03.9 Hypothyroidism, unspecified; E11.9 Type 2 diabetes mellitus without complications; Z90.710 Acquired absence of both cervix and uterus; Z96.653 Presence of artificial knee joint, bilateral; Z91.040 Latex allergy status; Z88.1 Allergy status to other antibiotic agents; Z88.2 Allergy status to sulfonamides